=== PATIENT | female | born 1960 | race Caucasian/White ===

== ENCOUNTER → 2017-08-09 08:07 | Outpatient (CLI) | payer OTHER, SELFPAY ==
--- NOTE | 2017-08-09 08:15 | HPBI_ITS ---
MAMMOGRAPHY - BILATERAL SCREENING REASON FOR EXAM: Female, 56 years old. Routine annual screening examination. PERTINENT HISTORY: Non-contributory. TECHNIQUE: Digital bilateral breast yudy (3D mammographic acquisition) in the CC and MLO projections. 2-D mediolateral oblique (MLO) and craniocaudad (CC) views of both breasts were obtained. CAD: Full Field Digital Mammography with Computer Added Detection was performed. COMPARISON: No comparison mammograms available at this time. If any prior films become available, an addendum to this report can be generated. FINDINGS: Breast Composition: There are scattered areas of fibroglandular density. There are no dominant masses or suspicious calcifications. Benign-appearing bilateral axillary lymph nodes. No other significant abnormalities are identified. HPBI/SCREENING MAMM (CAD), BILAT IMPRESSION: Negative screening mammogram. Yearly followup mammogram recommended. (A) ASSESSMENT CATEGORY: BIRADS Category 2: Benign. A letter regarding these results will be sent to the patient by the facility within 30 days. Approximately 10% of breast cancers are not detected by mammography. A normal mammogram should not delay biopsy of a clinically suspicious abnormality. [id number] Electronically Signed: Bahman Lala MD at 12:33 EST Tel [phone], Service support ,
== END ==
PROVIDERS: Family Provider Nurse Practitioner Family; PCP Nurse Practitioner Family
DX: Z12.31 Encounter for screening mammogram for malignant neoplasm of breast (principal)
CPT/HCPCS: 77063; 77067

== ENCOUNTER → 2019-06-27 11:32 | Outpatient (CLI) | payer MEDICAID, SELFPAY ==
--- NOTE | 2019-06-27 11:38 | BI_ITS ---
MAMMOGRAPHY - BILATERAL SCREENING REASON FOR EXAM: Female, 58 years old. Routine annual screening examination. PERTINENT HISTORY: Non-contributory. TECHNIQUE: Digital bilateral breast sandy (3D mammographic acquisition) in the CC and MLO projections. 2-D mediolateral oblique (MLO) and craniocaudad (CC) views of both breasts were obtained. CAD: Full Field Digital Mammography with Computer Added Detection was performed. COMPARISON: Comparison is made with prior study dated February 06, 2018. FINDINGS: Breast Composition: There are scattered areas of fibroglandular density. There are no dominant masses or suspicious calcifications. Stable small benign-appearing bilateral axillary lymph nodes. No other significant abnormalities are identified. There has been no significant change since the prior study. BI/SCREEN MAMM (CAD) W/SANDY BILAT IMPRESSION: Stable bilateral screening mammogram. Yearly follow-up mammogram recommended. (A) ASSESSMENT CATEGORY: BIRADS Category 2: Benign. A letter regarding these results will be sent to the patient by the facility within 30 days. Approximately 10% of breast cancers are not detected by mammography. A normal mammogram should not delay biopsy of a clinically suspicious abnormality. [id number] Electronically Signed: Bahman Lala, at 13:11 EST , Service support ,
== END ==
PROVIDERS: Family Provider Nurse Practitioner Family; PCP Nurse Practitioner Family; Referring Provider Nurse Practitioner Family; Visit Provider Nurse Practitioner Family
DX: Z12.31 Encounter for screening mammogram for malignant neoplasm of breast (principal)
CPT/HCPCS: 77063; 77067

== ENCOUNTER → 2019-07-18 10:18 | Outpatient (CLI) | payer MEDICAID, SELFPAY ==
--- NOTE | 2019-07-18 10:22 | RAD_ITS ---
STUDY: X-RAY - LEFT ANKLE REASON FOR EXAM: Female, 58 years old. PAIN IN LEFT ANKLE, NKI TECHNIQUE: 3 view(s) of the ankle. COMPARISON: None. FINDINGS: Normal visualized distal tibia and fibula. Normal medial and lateral malleoli. Normal tibiotalar articulation and ankle mortise. Sclerotic lesion of the medial talus with smooth margins. No overlying periosteal reaction or cortical disruption. The visualized subtalar, talonavicular, calcaneocuboid and tarsal articulations are normal. The soft tissue structures are unremarkable. RAD/Ankle min 3 Views IMPRESSION: No fracture, malalignment or erosive process. Probable bone island of the talus. Electronically Signed: Qamar Pearson MD ([place]) at 14:36 EST , Service support ,
== END ==
DX: M25.572 Pain in left ankle and joints of left foot (principal); R60.9 Edema, unspecified
CPT/HCPCS: 73610

== ENCOUNTER → 2020-09-29 10:02 | Outpatient (CLI) | payer MEDICAID, SELFPAY ==
--- NOTE | 2020-09-29 10:08 | EKG12_ITS ---
Test Reason : ROUTINE Blood Pressure : / mmHG Vent. Rate : 064 BPM Atrial Rate : 064 BPM P-R Int : 124 ms QRS Dur : 096 ms QT Int : 428 ms P-R-T Axes : 028 079 077 degrees QTc Int : 441 ms Normal sinus rhythm Septal infarct , age undetermined Abnormal ECG Confirmed by GORDON MCGRATH, LUIS ([id number]), index editor CRISTIAN COWART ([id number]) on 09/30/2020 12:41:51 PM Referred By: [facility] Confirmed By:LUIS LEYVA MD
== END ==
DX: I10 Essential (primary) hypertension (principal); E78.5 Hyperlipidemia, unspecified
CPT/HCPCS: 93005

== ENCOUNTER → 2021-03-08 08:32 | Outpatient (CLI) | payer MEDICAID, SELFPAY ==
[2021-03-08 10:23] LABS: AST(SGOT) 24 U/L (15-37); Alanine Aminotransfer ALT/SGPT 42 U/L (13-56); Albumin, Serum 3.9 g/dL (3.2-5.0); Alkaline Phosphatase 161 U/L (45-117); Anion Gap 4 (5-15); BUN 15 mg/dL (7-18); Calcium,Total 9.3 mg/dL (8.5-10.1); Chloride 104 mmol/L (98-107); Cholesterol 158 mg/dL (200); Creatinine, Serum 1.07 mg/dL (0.55-1.02); EST Glomerular Filtration Rate 56 mL/min (>60); Est Glom Filt Rate - Afr Amer 68 mL/min (>60); Globulin 3.9 g/dL (2.2-4.2); Glucose 106 mg/dL (74-106); High Density Lipoprotein 46 mg/dL; Potassium 3.5 mmol/L (3.5-5.1); Protein, Total 7.8 g/dL (6.4-8.2); Sodium Level 140 mmol/L (136-145); Triglycerides 174 mg/dL; Very Low Density Lipoprotein 35 mg/dL (5-40)
== END ==
DX: E78.5 Hyperlipidemia, unspecified (principal); I10 Essential (primary) hypertension
CPT/HCPCS: 36415; 80053; 80061

== ENCOUNTER → 2021-04-06 10:32 | Outpatient (CLI) | payer MEDICAID, SELFPAY ==
--- NOTE | 2021-04-06 10:35 | BI_ITS ---
MAMMOGRAPHY - BILATERAL SCREENING REASON FOR EXAM: Female, 60 years old. Routine annual screening examination. PERTINENT HISTORY: Non-contributory. TECHNIQUE: Digital bilateral breast sandy (3D mammographic acquisition) in the CC and MLO projections. 2-D mediolateral oblique (MLO) and craniocaudad (CC) views of both breasts were obtained. CAD: Full Field Digital Mammography with Computer Added Detection was performed. COMPARISON: Comparison is made with prior study dated 06/27/2019 and 02/06/2018. FINDINGS: Breast Composition: There are scattered areas of fibroglandular density. There are no dominant masses or suspicious calcifications. Stable benign-appearing bilateral axillary lymph nodes. No other significant abnormalities are identified. There has been no significant change since the prior study. BI/SCRN MAMM (CAD)W/SANDY BILAT IMPRESSION: Stable bilateral screening mammogram. Yearly follow-up mammogram recommended. (A) ASSESSMENT CATEGORY: BIRADS Category 2: Benign. A letter regarding these results will be sent to the patient by the facility within 30 days. Approximately 10% of breast cancers are not detected by mammography. A normal mammogram should not delay biopsy of a clinically suspicious abnormality. [id number] Electronically Signed: Bahman Lala MD at 11:21 EDT , Service support ,
== END ==
PROVIDERS: Visit Provider Family Medicine
DX: Z12.31 Encounter for screening mammogram for malignant neoplasm of breast (principal)
CPT/HCPCS: 77063; 77067

== ENCOUNTER → 2021-06-30 11:23 | Outpatient (CLI) | payer MEDICAID, SELFPAY ==
[2021-06-30 12:32] LABS: T4 Free Direct 1.28 ng/dL (0.76-1.46); Thyroid Stim Hormone (TSH) 1.24 uIU/mL (0.358-3.74)
== END ==
PROVIDERS: Visit Provider Psychiatry & Neurology Neurology
DX: G25.0 Essential tremor (principal)
CPT/HCPCS: 36415; 84439; 84443

== ENCOUNTER 2021-07-19 10:54 | Outpatient (CLI) | payer MEDICAID, SELFPAY ==
--- NOTE | 2021-07-19 11:01 | ECHOD_ITS ---
Reason For Study: Valve replacement Eval Procedure This was a 2D Doppler, Color Flow transthoracic echocardiogram. Technically difficult study due to heart placement in chest cavity. The study was technically difficult. Exam performed in department. Left Ventricle Normal LV size. Sigmoid septum. Left ventricular systolic function is normal. The estimated ejection fraction is 60 %. No evidence for diastolic dysfunction. No regional wall motion abnormalities noted. Right Ventricle Normal RV size. Normal systolic function. Atria Normal left atrium. Normal right atrium. No doppler evidence for ASD. Mitral Valve There is mild mitral annular calcification. Extension of the mitral annular calcification onto the posterior mitral valve leaflet. Mild-Moderate (1-2+) mitral valve insufficiency. Tricuspid Valve Normal tricuspid valve. Mild to moderate (1-2+) tricuspid valve insufficiency. Right ventricular systolic pressure estimated to be 35 mmHg. Aortic Valve The aortic valve apparatus is not well visualized, however, based upon the 2D echocardiographic images obtained, there appears to be a stable bioprosthetic aortic valve apparatus witih associated thickening and calcification. 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 Pulmonic Valve The pulmonic valve is not well visualized. Great Vessels The aortic root is not well visualized. Pericardium/Pleural No pericardial effusion. MMode/2D Measurements & Calculations RVDd: 3.1 cm LVOT diam: 2.0 cm LA dimension: 3.3 cm LVOT area: 3.0 cm2 LAV(MOD-bp): 51.0 ml LA A4 area: 15.9 cm2 RA A4 area: 13.7 cm2 LAV(MOD-bp) Indexed: 28.1 ml/m2 LAV(MOD-sp2): 57.0 ml LAV(MOD-sp4): 41.8 ml Time Measurements MV dec time: 0.20 sec Doppler Measurements & Calculations MV E max richy: 103.5 cm/sec Lat Peak E' Richy: 10.1 cm/sec Med Peak E' Richy: 7.9 cm/sec MV A max richy: 60.9 cm/sec E/E' lat: 10.2 E/E' med: 13.0 MV E/A: 1.7 MV V2 max: 106.1 cm/sec MV P1/2t max richy: 106.1 cm/sec Ao V2 max: 424.4 cm/sec MV max P.5 mmHg MV P1/2t: 66.4 msec Ao max P.1 mmHg MV V2 mean: 51.9 cm/sec MV dec slope: 467.6 cm/sec2 Ao V2 mean: 295.5 cm/sec MV mean P.3 mmHg Ao mean P.1 mmHg MV V2 VTI: 25.2 cm MVA(P1/2t): 3.3 cm2 Ao V2 VTI: 102.2 cm MVA(VTI): 5.4 cm2 JAYASHREE(I,D): 1.3 cm2 JAYASHREE(V,D): 1.3 cm2 AI max richy: 556.6 cm/sec LV V1 max: 189.2 cm/sec MR max richy: 583.4 cm/sec AI max P.9 mmHg LV V1 max P.3 mmHg MR max P.1 mmHg AI dec slope: 477.4 cm/sec2 LV V1 mean P.2 mmHg MR mean richy: 463.7 cm/sec AI P1/2t: 341.5 msec LV V1 mean: 132.6 cm/sec MR mean P.7 mmHg LV V1 VTI: 44.9 cm MR VTI: 201.4 cm SV(LVOT): 135.6 ml PA V2 max: 67.4 cm/sec TR max richy: 282.8 cm/sec TR max P.0 mmHg ECHO/Echo Complete Interpretation Summary The study was technically difficult. Left ventricular systolic function is normal. The estimated ejection fraction is 60 %. Sigmoid septum. There is mild mitral annular calcification. Extension of the mitral annular calcification onto the posterior mitral valve l eaflet. Mild-Moderate (1-2+) mitral valve insufficiency. Mild to moderate (1-2+) tricuspid valve insufficiency. The aortic valve apparatus is not well visualized, however, based upon the 2D e chocardiographic images obtained, there appears to be a stable bioprosthetic aortic valve appara tus witih associated thickening and calcification. Based upon the spectral doppler information obtained there appears to be modera te to severe bioprosthetic aortic valve stenosis. Right ventricular systolic pressure estimated to be 35 mmHg. No evidence for diastolic dysfunction. Ordering Physician: Silver Kuo Referring Physician: [facility] Performed By: Mitchell Macedo RCS
[2021-07-19 12:28] LABS: Anion Gap 5 (5-15); BUN 12 mg/dL (7-18); BUN/Creat Ratio 12.3 RATIO (10-20); Calcium,Total 9.2 mg/dL (8.5-10.1); Chloride 101 mmol/L (98-107); Creatinine, Serum 0.98 mg/dL (0.55-1.02); EST Glomerular Filtration Rate 62 mL/min (>60); Est Glom Filt Rate - Afr Amer 75 mL/min (>60); Glucose 88 mg/dL (74-106); Magnesium 2.2 mg/dL (1.6-2.6); Potassium 3.6 mmol/L (3.5-5.1); Sodium Level 140 mmol/L (136-145)
== END 2021-07-19 23:59 | disposition short-term general hospital (02) ==
PROVIDERS: Referring Provider Internal Medicine Cardiovascular Disease; Visit Provider Internal Medicine Cardiovascular Disease
DX: I10 Essential (primary) hypertension (principal)
CPT/HCPCS: 36415; 80048; 83735; 93306

== ENCOUNTER 2021-09-23 10:35 | Outpatient (CLI) | payer MEDICAID, SELFPAY ==
--- NOTE | 2021-09-23 10:38 | CDU_ITS ---
Reason For Study: carotid bruits Rt. Velocities/BP Lt. Velocities/BP Prox CCA 79.0/17.5 cm/sec. Prox CCA 74.6/18.6 cm/sec. Mid CCA 66.9/17.5 cm/sec. Mid CCA 69.1/21.9 cm/sec. Dist CCA 60.3/19.7 cm/sec. Dist CCA 57.0/14.2 cm/sec. Prox ICA 57.0/20.8 cm/sec. Prox ICA 57.0/18.6 cm/sec. Mid ICA 85.6/28.4 cm/sec. Mid ICA 77.9/26.3 cm/sec. Dist ICA 110.0/36.4 cm/sec. Dist ICA 84.5/26.3 cm/sec. Rt. ICA/CCA = 110.0/66.9=1.6. Lt. ICA/CCA = 77.9/69.1=1.1. Prox ECA 69.1/10.9 cm/sec. Prox ECA 86.7/14.2 cm/sec. Rt. Vert. 52.8/15.0 cm/sec. Lt. Vert. 52.6/12.0 cm/sec. Right Extracranial There is homogeneous, smooth atherosclerotic plaque noted in the right common carotid artery. There is homogeneous, smooth atherosclerotic plaque noted in the right internal carotid artery. There is intimal thickening but no significant atherosclerotic plaque noted in the right external carotid artery. Antegrade flow is noted in the right vertebral artery. Left Extracranial There is intimal thickening but no significant atherosclerotic plaque noted in the left common carotid artery. There is homogeneous, smooth atherosclerotic plaque noted in the left internal carotid artery. There is no significant atherosclerotic plaque noted in the left external carotid artery. Antegrade flow is noted in the left vertebral artery. Procedure Carotid Duplex [id number]. This is a Carotid Duplex examination using B-mode, color flow and specral Doppler. VL/Carotid Duplex Ultrasound Interpretation Summary Smooth plaque within the right internal carotid artery with less than 50% steno sis Less than 50% stenosis right external carotid artery Smooth plaque of the proximal left internal carotid artery with less than 50% s tenosis Less than 50% stenosis left external carotid artery Patent and antegrade vertebral arteries bilaterally Ordering Physician: Cristobal Hurtado Referring Physician: [facility] Performed By: Ale Almanzar RDCS, RVT
== END 2021-09-23 23:59 | disposition home or self-care (01) ==
LOC: CVS 10:37
PROVIDERS: Referring Provider Psychiatry & Neurology Neurology; Visit Provider Psychiatry & Neurology Neurology
DX: R09.89 Other specified symptoms and signs involving the circulatory and respiratory systems (principal)
CPT/HCPCS: 93880

== ENCOUNTER → 2021-12-06 | Outpatient (CLI) | payer MEDICAID, SELFPAY ==
--- NOTE | 2021-12-06 14:24 | RAD_ITS ---
STUDY: X-RAY - LEFT FOOT CLINICAL: Female, 61 years old. PAIN IN LEFT FOOT TECHNIQUE: 2 view(s) of the foot. COMPARISON: None. FINDINGS: BONES: No fracture demonstrated. JOINTS: No dislocation. SOFT TISSUES: Unremarkable. RAD/Foot 2 Views IMPRESSION: Unremarkable study. Electronically Signed: Mariela Elias MD at 6:55 EDT ,
[2021-12-06 14:27] LABS: Absolute Lymphocyte Count 3.72 X10^3/uL (0.83-4.51); Absolute Neutrophil Count 6.1 X10^3/uL (2.0-7.7); Basophil# 0.14 X10^3/uL; Basophil% 1.3 % (0-1); Eosinophil# 0.23 X10^3/uL; Eosinophils% 2.1 % (0-5); Hematocrit 41.9 % (37-47); Hemoglobin 14.4 g/dL (12.0-15.0); Lymphocyte # 3.72 X10^3/ul (0.83-4.51); Lymphocyte % 34.1 % (19-41); Mean Corp Hgb Conc 34.4 g/dL (32-36); Mean Corpuscular Hgb 31.8 pg (27.0-32.0); Mean Corpuscular Volume 92.5 fL (81-99); Mean Platelet Vol. 11.1 fl (6.2-12.0); Monocyte# 0.71 X10^3/uL; Monocyte% 6.5 % (0-10); NRBC Flagged by Analyzer 0 % (0-5); Neutrophil # 6.08 X10^3/uL (2.7-7.7); Neutrophil % 55.6 % (47-70); Platelet Count 178 K/mm3 (150-450); RBC Distribution Width CV 12.4 % (11.6-14.6); RBC Distribution Width SD 42.5 fl (35.1-43.9); Red Blood Count 4.53 M/mm3 (4.2-5.4); White Blood Count 10.9 K/mm3 (4.4-11.0)
[2021-12-06 15:00] LABS: Thyroid Stim Hormone (TSH) 1.58 uIU/mL (0.358-3.74); Uric Acid 6.7 mg/dL (2.6-6.0)
== END | disposition home or self-care (01) ==
PROVIDERS: Visit Provider Nurse Practitioner Adult Health
DX: M79.672 Pain in left foot (principal); I10 Essential (primary) hypertension
CPT/HCPCS: 36415; 73620; 84443; 84550; 85025

== ENCOUNTER → 2022-01-26 | Outpatient (CLI) | payer MEDICAID, SELFPAY ==
[2022-01-26 14:18] LABS: Absolute Lymphocyte Count 3.76 X10^3/uL (0.83-4.51); Absolute Neutrophil Count 5.4 X10^3/uL (2.0-7.7); Basophil# 0.11 X10^3/uL; Basophil% 1.1 % (0-1); Eosinophil# 0.23 X10^3/uL; Eosinophils% 2.2 % (0-5); Hematocrit 40.1 % (37-47); Hemoglobin 14.2 g/dL (12.0-15.0); Lymphocyte # 3.76 X10^3/ul (0.83-4.51); Lymphocyte % 36.7 % (19-41); Mean Corp Hgb Conc 35.4 g/dL (32-36); Mean Corpuscular Hgb 32.1 pg (27.0-32.0); Mean Corpuscular Volume 90.7 fL (81-99); Mean Platelet Vol. 10.7 fl (6.2-12.0); Monocyte# 0.68 X10^3/uL; Monocyte% 6.6 % (0-10); NRBC Flagged by Analyzer 0 % (0-5); Neutrophil # 5.44 X10^3/uL (2.7-7.7); Neutrophil % 53.1 % (47-70); Platelet Count 153 K/mm3 (150-450); RBC Distribution Width CV 12.5 % (11.6-14.6); RBC Distribution Width SD 41.1 fl (35.1-43.9); Red Blood Count 4.42 M/mm3 (4.2-5.4); White Blood Count 10.3 K/mm3 (4.4-11.0)
[2022-01-26 14:38] LABS: Anion Gap 4 (5-15); BUN 15 mg/dL (7-18); BUN/Creat Ratio 15.5 RATIO (10-20); Calcium,Total 9.5 mg/dL (8.5-10.1); Chloride 104 mmol/L (98-107); Creatinine, Serum 0.97 mg/dL (0.55-1.02); EST Glomerular Filtration Rate 63 mL/min (>60); Est Glom Filt Rate - Afr Amer 76 mL/min (>60); Glucose 87 mg/dL (74-106); Potassium 3.3 mmol/L (3.5-5.1); Sodium Level 139 mmol/L (136-145); Uric Acid 6.9 mg/dL (2.6-6.0)
== END | disposition home or self-care (01) ==
LOC: LAB 14:06
PROVIDERS: Visit Provider Nurse Practitioner Adult Health
DX: M79.672 Pain in left foot (principal); M10.9 Gout, unspecified
CPT/HCPCS: 36415; 80048; 84550; 85025